=== PATIENT | female | born 1985 | race Caucasian/White ===

== ENCOUNTER 2019-12-26 14:20 | Emergency (ER) | payer BC ==
[~2019-12-26] VITALS: Ht 165.1 cm; Wt 83.9 kg
[2019-12-26 14:26] VITALS: BP_SYST 131
[2019-12-26] MEDS ORDERED: BACITRACIN 1 GM OINT TP ONE (14:45)
--- NOTE | 2019-12-26 14:45 | NUR ---
Patient to ER bed 8 to gown for evaluation. Side rails up.
--- NOTE | 2019-12-26 14:46 | NUR ---
Patient presents to ER C/O puncture wound. Patient A&Ox4, ambulatory to ER, afebrile, left lower arm punture wound, denies N/V/D, pain 10/28 Patient states I cut myself with a pocket knife while onening a box.
--- NOTE | 2019-12-26 14:50 | NUR ---
HARIKA Collado examining patient.
[2019-12-26] MEDS: DIPH-TET-PERTUS Vaccine 0.5 ML VIAL (ADACEL) I.M. ONE (15:21)
[2019-12-26 15:38] VITALS: BP_SYST 133
--- NOTE | 2019-12-26 15:38 | NUR ---
Patient given written and verbal discharge instructions and verbalizes understanding. ER MD discussed with patient the results and treatment provided. Patient in stable condition. ID arm band removed. no Rx given. Patient educated on pain management and to follow up with PMD. Pain Scale 1/10. Opportunity for questions provided and answered. Medication side effect fact sheet provided.
== END 2019-12-26 15:38 | disposition home or self-care (01) ==
LOC: SED 14:20
DX: S51.832A Puncture wound without foreign body of left forearm, initial encounter (principal); W26.0XXA Contact with knife, initial encounter; Y93.89 Activity, other specified; Y92.89 Other specified places as the place of occurrence of the external cause; Y99.8 Other external cause status
CPT/HCPCS: 90715; 99283

== ENCOUNTER 2024-01-26 19:42 | Emergency (ER) | payer BC ==
[~2024-01-26] VITALS: Ht 165.1 cm; Wt 83.9 kg
[2024-01-26 20:12] VITALS: BP_SYST 119; PULSE 92; RESP 16; TEMP 98.7; O2SAT 97
== END 2024-01-27 01:15 | disposition left against medical advice (07) ==
LOC: SED 19:42
DX: M79.645 Pain in left finger(s) (principal)
CPT/HCPCS: 93971; 99284